=== PATIENT | male | born 1945 | race Native Hawaiian/Other Pacific Islander ===

== ENCOUNTER 2018-06-19 15:43 | Outpatient (CLI) | payer OTHER | END 2018-06-19 23:20 | disposition home or self-care (01) | LOC: RAD 15:43 | DX: R05 Cough (principal) ==

== ENCOUNTER 2018-10-04 10:31 | Outpatient (CLI) | payer OTHER ==
[2018-10-04 11:07] LABS: POTASSIUM 2.8 mmol/L (3.6-5.2)
[2018-10-04 11:08] LABS: PLATELET COUNT 214 K/uL (142-355)
== END 2018-10-04 23:59 | disposition home or self-care (01) ==
LOC: LABW 10:31
PROVIDERS: Physician Assistant
DX: T67.5XXA Heat exhaustion, unspecified, initial encounter (principal)
CPT/HCPCS: 36415; 80053; 81000; 83735; 85027

== ENCOUNTER 2019-04-22 13:01 | Outpatient (CLI) | payer OTHER | END 2019-04-22 19:28 | disposition home or self-care (01) | LOC: RAD 13:01 | DX: J20.9 Acute bronchitis, unspecified (principal) ==

== ENCOUNTER 2020-06-30 16:37 | Outpatient (CLI) | payer OTHER | END 2020-06-30 21:39 | disposition home or self-care (01) | LOC: RAD 16:37 | PROVIDERS: ATTEND Nurse Practitioner Family | DX: J44.1 Chronic obstructive pulmonary disease with (acute) exacerbation (principal) ==

== ENCOUNTER 2021-01-04 15:49 | Outpatient (CLI) | payer OTHER | END 2021-01-04 20:27 | disposition home or self-care (01) | LOC: RAD 15:49 | PROVIDERS: ATTEND Nurse Practitioner Family | DX: S20.222A Contusion of left back wall of thorax, initial encounter (principal); X58.XXXA Exposure to other specified factors, initial encounter; Y93.9 Activity, unspecified; Y92.9 Unspecified place or not applicable; Y99.9 Unspecified external cause status ==

== ENCOUNTER 2021-03-07 09:25 | Outpatient (CLI) | payer OTHER | END 2021-03-07 20:23 | disposition home or self-care (01) | LOC: RAD 09:25 | PROVIDERS: ATTEND Nurse Practitioner Family | DX: Z20.822 Contact with and (suspected) exposure to COVID-19 (principal) ==

== ENCOUNTER 2021-03-21 10:18 | Observation (INO) | payer OTHER ==
[~2021-03-21] VITALS: Ht 175.3 cm; Wt 82.1 kg
--- NOTE | 2021-03-21 10:41 | NUR ---
PATIENT BROUGHT IN VIA WHEELCHAIR DIRECT ADMIT FROM OFFICE. PATIENT ADMISSION ASSESSMENT COMPLETED AND PATIENT ORIENTED TO ROOM 1118. IV 22G STARTED X1 ATTEMPT TO THE LEFT HAND. PATIENT UNABLE TO STATE WHICH MEDICATIONS HE TAKES AT HOME. PATIENT USES [facility]. WILL CALL AND REQUEST MED LIST. BED LOCKED IN LOW POSITION, SIDE RAILS UP X2, CALL MARTINEZ WITHIN REACH.
[2021-03-21 11:42] VITALS: BP 102/58; TEMP 99.1; Ht 175.3 cm; Wt 82.1 kg
[2021-03-21 11:44] LABS: PLATELET COUNT 208 K/uL (142-355)
[2021-03-21 11:48] LABS: POTASSIUM 3.7 mmol/L (3.6-5.2)
[2021-03-21 12:00] VITALS: BP 102/58; TEMP 99.1
[2021-03-21 16:00] VITALS: BP 114/53; TEMP 98.3
[2021-03-21 20:00] VITALS: BP 101/57; TEMP 99.1
--- NOTE | 2021-03-21 20:00 | NUR ---
PT AWAKE WITH NO ACUTE DISTRESS NOTED, RESP RATE NONLABORED, ON ROOM AIR, IV INTACT TO L HAND WITH NORMAL SALINE INFUSING AT 100ML/HR WITH NO PROBLEMS NOTED TO SITE, DENIES ANY NEEDS AT THIS TIME, ENCOURAGED TO CALL NEEDED, RAILS UP, BED IN OW POSITION, CALL LIGHT IN REACH, WILL MONITOR.
--- NOTE | 2021-03-21 21:30 | NUR ---
PT FOUND AWAKE LAYING IN BED WITH NO S/S OF ACUTE DISTRESS NOTED, RESP RATE NONLABORED, ON ROOM AIR, IV INTACT TO L HAND WITH NS INFUSING AT 100ML/HR, DENIES ANY NEEDS AT THIS TIME. GAVE MEDICATION SEEN ON APR. WILL MONITOR CLOSELY, RAILS UP, BED IN LOW POSITION, CALL LIGHT IN REACH, URINAL WITH IN PT'S REACH, ENCOURAGED TO CALL NEEDED. PT ON ISOLATION FOR COVID. PT ALERT AND ORIENTED.
--- NOTE | 2021-03-21 23:38 | NUR ---
RESTING WITH EYES CLOSED, NO S/S OF PAIN OR DISTRESS NOTED, WILL MONITOR CLOSELY, RAILS UP, BED IN LOW POSITION, CALL LIGHT IN REACH.
[2021-03-22] VITALS: BP 108/63; TEMP 99.1
--- NOTE | 2021-03-22 00:18 | NUR ---
PT FOUND RESTING WITH EYES CLOSED, AROUSES AND DENIES ANY NEEDS OR PROBLEMS AT THIS TIME, RESP RATE NONLABORED, ON ROOM AIR, IV INTACT TO L HAND WITH NS INFUSING AT 100ML/HR, TELEMETRY IN USE. GAVE INHALER PER ORDER SEEN ON EMAR. PT TOLERATED WELL. ENCOURAGED TO CALL NEEDED, PT ACKNOWLEDGES UNDERSTANDING, RAILS UP, BED IN LOW POSITION, CALL LIGHT IN REACH. BROUGHT PT NEW URINAL AND INSTRUCTED TO USE THIS URINAL AND CALL SO THAT PT COULD USE URINE FOR UA AND SEND TO LAB, PT ACKNOWLEDGES UNDERSTANDING.
--- NOTE | 2021-03-22 02:25 | NUR ---
PT FOUND RESTING WITH EYES CLOSED BUT AROUSES CLIENT SERVICES COORDINATOR ENTERS ROOM, DENIES ANY PROBLEMS OR NEEDS AT THIS TIME, RESP RATE NONLABORED, ON ROOM AIR, TELEMETRY LEADS REPLACED AND IS NOW IN USE, IV INTACT WITH NS ONGOING. NO S/S OF DISTRESS NOTED. GAVE MEDICATION PER MAR, WILL MONITOR CLOSELY. RAILS UP, BED IN LOW POSITION, CALL LIGHT IN REACH.
[2021-03-22 04:00] VITALS: BP 103/62; TEMP 98.7
--- NOTE | 2021-03-22 04:10 | NUR ---
RESTING WITH EYES CLOSED, NO S/S OF PAIN OR DISTRESS NOTED, IV INTACT WITH NS AT 100ML/HR, ON ROOM AIR, TELEMETRY IN USE, WILL MONITOR, RAILS UP, BED IN LOW POSITION, CALL LIGHT IN REACH.
[2021-03-22 08:07] VITALS: BP 114/64; TEMP 98.5
[2021-03-22] MEDS ORDERED: ALBU90AE13 INH (08:11)
[2021-03-22] MEDS ORDERED: ASCORBIC ACD500 MG PO (08:12)
[2021-03-22] MEDS ORDERED: ENTERIC COATED325 MG PO ×2 (08:13→08:14)
[2021-03-22] MEDS ORDERED: ZITHROMAX500 MG PO (08:14)
[2021-03-22] MEDS ORDERED: BENZONATATE100 MG PO (08:15)
[2021-03-22] MEDS ORDERED: BREZTRI AEROSPH1 AER INH (08:16)
[2021-03-22] MEDS ORDERED: NATURAL VIT PO (08:17)
[2021-03-22] MEDS ORDERED: PEPCID40 MG PO (08:18)
[2021-03-22] MEDS ORDERED: DECADRON4 MG PO (08:18)
[2021-03-22] MEDS ORDERED: LISI20TA11 PO (08:21)
[2021-03-22] MEDS ORDERED: ROBAXIN-750750 MG PO (08:22)
[2021-03-22] MEDS ORDERED: HYDROCHLOROT12.5 M1 PO (08:22)
[2021-03-22] MEDS ORDERED: GUAI600T70 PO (08:24)
[2021-03-22] MEDS ORDERED: MEDROL DOSEPAK4 MG PO (08:24)
[2021-03-22] MEDS ORDERED: PANTOPRAZOLE 40MG TA PO (08:25)
[2021-03-22] MEDS ORDERED: BUDE1AER5 INH (08:25)
[2021-03-22] MEDS ORDERED: NATURAL ZINC50 MG PO (08:26)
[2021-03-22 11:16] LABS: PLATELET COUNT 194 K/uL (142-355)
[2021-03-22 11:34] LABS: POTASSIUM 4.2 mmol/L (3.6-5.2)
[2021-03-22 12:00] VITALS: BP 105/61; TEMP 98.9
--- NOTE | 2021-03-22 13:40 | NUR ---
PT SITTING UP HIGH FOWLERS IN BED, TALKING ON CELLPHONE. ALERT AND ORIENTED. DENIES PAIN/DISCOMFORT. LABS ORDERED FOR TODAY AT 1100. SATS=94% ON ROOM AIR. AM MEDS ADMINISTERED ORDERED AND PT TOLERATED WITH NO DIFFICULTY. IVF OF NS INFUSING ORDERED AT 100ML/HR. IV SITE INTACT WITH NO S/S OF INFILTRATION. PT ED ON USE OF MDI'S AND INCINITIVE SPIROMETER. CONTINUE TO MONITOR.
--- NOTE | 2021-03-22 15:50 | NUR ---
IS HERE ROUNDING ON PATIENT. PATIENT IS SITTING UP IN THE CHAIR W/O HIS O2. PATIENT STATES " I FEEL SOME BETTER, STILL CONGESTED". PATIENT WAS IN NO ACUTE DISTRESS WHEN TALKING TO W/O HIS OXYGEN. NEW ORDERS GIVEN FOR LABS IN THE A.M. WITH PATIENT MOST LIKELY BEING DISCHARGED IN THE MORNING.
[2021-03-22 16:00] VITALS: BP 107/59; TEMP 98.3
--- NOTE | 2021-03-22 18:37 | NUR ---
PT STAYED UP IN CHAIR MOST OF DAY. NO O2 INTACT, SATS=94% ON ROOM AIR. NAD NOTED. CONTNUES TO USE INCENTIVE SPIROMETER DURING DAY AND MDI'S. C/O PAIN TO RIGHT ANKLE. RIGHT ANKLE SWOLLEN, PT DENIES ANY PREVIOUS INJURIES BELIEVES IT TO BE GOUT. ADMINISTERED TYLENOL ORDERED FOR PAIN, PAIN DECREASED. NO OTHER COMPLAINTS VOICED THIS SHIFT. PT HAS POSITIVE ATTITUDE AND COMPLIANT WITH TX.
--- NOTE | 2021-03-22 18:51 | NUR ---
PT AWAKE AND ALERT MOST OF DAY. PT HAS LITTLE MOTIVATION TO GET OUT OF BED AND SIT UP IN CHAIR, HAS TO BE PROMPTED. COMPLIANT WITH PHYSICAL THERAPY. NAD NOTED. IVF INFUSING AT 100ML/HR OF NS AND IV SITE INTACT TO LEFT HAND WITH NO S/S OF INFILTRATION NOTED. DENIES PAIN/DISCOMFORT. SATS=94% ON ROOM AIR. ENCOURAGED PT TO USE INCENTIVE SPIROMETER 1-2 TIMES EVERY HOUR AND PT WAS NOT COMPLIANT. RE-EDUCATED PT ON HOW TO USE AND PURPOSE OF IT AND MDI'S. CONTINUE TO MONITOR.
[2021-03-22 20:00] VITALS: BP 132/78; TEMP 98.6
--- NOTE | 2021-03-22 22:52 | NUR ---
PT AWAKE LAYING IN BED WITH NO ACUTE DISTRESS NOTED, DENIES ANY PAIN OR PROBLEMS AT THIS TIME, RESP RATE NONLABORED, ON ROOM AIR, TELEMETRY IN USE, IV INTACT TO L HAND WITH NS INFUSING AT 100ML/HR. GAVE MEDICATIONS SEEN ON APR, PT TAKES MEDS WHOLE PER SELF WITH NO PROBLEMS. PT MOVES AROUND IN BED PER SELF. ENCOURAGED TO CALL NEEDED, RAILS UP, BED IN LOW POSITION, CALL LIGHT IN REACH.
[2021-03-23] VITALS: BP 128/68; TEMP 98.4
--- NOTE | 2021-03-23 02:42 | NUR ---
PT FOUND RESTING IN POSITION OF COMFORT WITH EYES CLOSED, NO S/S OF PAIN OR DISTRESS NOTED, AROUSES AND IS ORIENTED. IV INTACT TO L HAND WITH NS INFUSING AT 100ML/HR, ON ROOM AIR, TELEMETRY IN USE WITH O2 SATS IN 90s, RESP RATE NONLABORED, COUGH NOTED AT TIMES, DENIES ANY NEEDS AT THIS TIME. REMAINS ON ISOLATION FOR COVID. BROUGHT PT ANOTHER PILLOW PER REQUEST AND ASSIST PT TO LOWER HOB TO GET MORE COMFORTABLE IN BED. GAVE MEDICATIONS SEEN ON APR. WILL MONITOR, RAILS UP X3, BED IN LOW POSITION, CALL LIGHT IN REACH, ENCOURAGED TO CALL NEEDED PT ACKNOWLEDGES UNDERSTANDING.
[2021-03-23 04:00] VITALS: BP 116/63; TEMP 98.8
[2021-03-23 05:52] LABS: PLATELET COUNT 179 K/uL (142-355)
[2021-03-23 06:31] LABS: POTASSIUM 4.1 mmol/L (3.6-5.2)
[2021-03-23 08:00] VITALS: BP 117/57; TEMP 98.8
[2021-03-23 12:00] VITALS: BP 118/79; TEMP 99.1
[2021-03-23 16:00] VITALS: BP 126/75; TEMP 98.9
[2021-03-23 20:29] VITALS: BP 113/70; TEMP 99.6
[2021-03-24 00:21] VITALS: BP 122/74; TEMP 99.2
--- NOTE | 2021-03-24 01:51 | NUR ---
NEW LEADS WERE PLACED ON PATIENT. PATIENT DENIES ANY PAIN OR SOB
[2021-03-24 03:57] VITALS: BP 124/63; TEMP 98.1
--- NOTE | 2021-03-24 04:07 | NUR ---
PATIENT IS RESTING QUIETLY. PATIENT DENIES ANY PAIN OR SOB
[2021-03-24 05:00] LABS: PLATELET COUNT 180 K/uL (142-355)
[2021-03-24 05:33] LABS: POTASSIUM 4.3 mmol/L (3.6-5.2)
[2021-03-24 08:00] VITALS: BP 134/73; TEMP 98.6
[2021-03-24 12:00] VITALS: BP 148/70; TEMP 98.3
--- NOTE | 2021-03-24 13:30 | NUR ---
PATIENT D/C HOME WITH DAUGHTER DRIVING. PERIPHERAL IV D/C WITH TIP INTACT.
== END 2021-03-24 13:30 | disposition home or self-care (01) ==
LOC: MED/SURG 10:18
PROVIDERS: ADMIT Family Medicine; ATTEND Family Medicine
DX: U07.1 COVID-19 (principal); E86.0 Dehydration; J12.82 Pneumonia due to coronavirus disease 2019; K21.9 Gastro-esophageal reflux disease without esophagitis; M62.81 Muscle weakness (generalized); R26.2 Difficulty in walking, not elsewhere classified; E78.49 Other hyperlipidemia
CPT/HCPCS: 36415; 80053; 81000; 82728; 83735; 84100; 85027; 85379; 86140; 87040; 87635; 93005; 94667; 94668; 94760; 96360; 96361; 96365; 96366; 96367; 96372; 96374; 96375; 99220; G0378; G0379; J0456; J0696; J1650; J2920; U0003

== ENCOUNTER 2022-06-28 16:30 | Outpatient (CLI) | payer OTHER ==
[~2022-06-28 16:30] MED LIST: ALBU90AE13 INH; ASCORBIC ACD500 MG PO; BENZONATATE100 MG PO; BREZTRI AEROSPH1 AER INH; BUDE1AER5 INH; DECADRON4 MG PO; ENTERIC COATED325 MG PO; GUAI600T70 PO; HYDROCHLOROT12.5 M1 PO; LISI20TA11 PO; MEDROL DOSEPAK4 MG PO; NATURAL VIT PO; NATURAL ZINC50 MG PO; PANTOPRAZOLE 40MG TA PO; PEPCID40 MG PO; ROBAXIN-750750 MG PO; ZITHROMAX500 MG PO
[2022-06-28 16:52] LABS: POTASSIUM 3.9 mmol/L (3.6-5.2)
== END 2022-06-28 19:02 | disposition home or self-care (01) ==
LOC: LABW 16:30
PROVIDERS: ATTEND Nurse Practitioner Family
DX: R10.11 Right upper quadrant pain (principal)
CPT/HCPCS: 36415; 80053; 82150; 83690

== ENCOUNTER 2022-07-18 18:50 | Outpatient (CLI) | payer OTHER | END 2022-07-18 19:50 | LOC: LAB 18:50 | PROVIDERS: ATTEND Family Medicine | DX: R19.7 Diarrhea, unspecified (principal) | CPT/HCPCS: 83630; 87015; 87045; 87324; 87328; 87329; 87449; 87899 ==